=== PATIENT | male | born 2000 | race Caucasian/White ===

== ENCOUNTER 2019-12-22 07:26 | Inpatient (IN) | payer OTHER ==
[~2019-12-22] VITALS: Ht 170.2 cm; Wt 76.6 kg
[2019-12-22 08:30] LABS: HEMATOCRIT 47.3 % (42.0-52.0); HEMOGLOBIN 14.8 g/dl (13.5-17.5); MEAN CORPUSCULAR HGB CONC 31.3 g/dl (32.0-36.5); MEAN CORPUSCULAR VOLUME 89.4 fl (80.0-96.0); PLATELET COUNT, AUTOMATED 174 10^3/uL (150-450); RED BLOOD COUNT 5.29 10^6/uL (4.30-6.10); WHITE BLOOD COUNT 4.9 10^3/uL (4.0-10.0)
[2019-12-22 08:55] LABS: AMPHETAMINES LEVEL URINE NEGATIVE (NEGATIVE); BARBITURATES URINE NEGATIVE (NEGATIVE); BENZODIAZEPINES URINE NEGATIVE (NEGATIVE); CANNABINOIDS URINE NEGATIVE (NEGATIVE); COCAINE METABOLITE URINE NEGATIVE (NEGATIVE); METHADONE URINE NEGATIVE (NEGATIVE); OPIATES URINE NEGATIVE (NEGATIVE); PHENCYCLIDINE URINE NEGATIVE (NEGATIVE)
[2019-12-22 09:05] LABS: ACETAMINOPHEN LEVEL < 2.0 UG/ML (10.0-30.0); ALBUMIN 4.2 GM/DL (3.2-5.2); ALT/SGPT 33 U/L (12-78); BILIRUBIN,DIRECT < 0.1 MG/DL (0.0-0.2); BILIRUBIN,TOTAL 0.2 MG/DL (0.2-1.0); BLOOD UREA NITROGEN 12 MG/DL (7-18); CALCIUM LEVEL 8.4 MG/DL (8.5-10.1); CARBON DIOXIDE LEVEL 28 MEQ/L (21-32); CHLORIDE LEVEL 108 MEQ/L (98-107); CREATININE FOR GFR 1.05 MG/DL (0.70-1.30); ETHYL ALCOHOL (ETHANOL) < 0.003 % (0.000-0.010); GLOMERULAR FILTRATION RATE > 60.0 (>60); GLUCOSE, FASTING 89 MG/DL (70-100); POTASSIUM SERUM 4.3 MEQ/L (3.5-5.1); SALICYLATE LEVEL < 1.7 MG/DL (5.0-30.0); SODIUM LEVEL 141 MEQ/L (136-145); TOTAL PROTEIN 7.1 GM/DL (6.4-8.2)
[2019-12-22] MEDS ORDERED: MAALOX 30 ML SUSP *UDC PO PRN (19:30)
[2019-12-22] MEDS ORDERED: MOM 30ML SUSPENSION UDC PO PRN (19:30)
[2019-12-22] MEDS ORDERED: ACETAMINOPHEN TAB 650MG DOSE (2X325MG) PO PRN (19:30)
[2019-12-22 20:17] VITALS: BP 134/61
[2019-12-23 06:28] VITALS: BP 131/61
--- NOTE | 2019-12-23 10:53 | MHHPEPDOC ---
[facility] History & Physical History and Physical DATE OF ADMISSION: Dec 22, 2019 at 19:27 Subjective HPI: The patient was admitted to the inpatient mental health unit after reportedly stating that he was suicidal. He reports having multiple stressors including no longer enjoying working in the . He reports that it's made things quite difficult for him to continue and that he finds himself increasingly suicidal as he is displeased with this work. He reports that he has no mental health history and that this had evolved in the setting of multiple stressors with loss of interest, fatigue and insomnia. Otherwise, patient denies any symptoms of psychosis. Inaudible for bipolar disorder. Reports that he's interested in a [employer] board. ALLERGIES: Allergies reviewed. MEDICAL HISTORY: Past medical history denies any history of admissions and inpatient stays, medication trials or suicide attempts. No previous diagnosis. FAMILY HISTORY: Family history denies any mental health history. 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 Reports that originally came from [facility]. SOCIAL HISTORY - SMOKING: Substance abuse, inaudible tobacco, alcohol and marijuana use currently. SURGICAL HISTORY: Surgical history reviewed. Objective Appearance: Well groomed. Appears to be stated age. Well nourished. Mildly guarded. Dysthymic. Constricted. Behavior: Engaged. Cooperative with good eye contact. Pleasant. Affect: Appropriate to context. Full range. Mood: Generally good. Appropriately reactive. Euthymic. Speech: Normal rate. Spontaneous and Fluid. Normal volume. Motor: No gross motor abnormalities. Cognition: Grossly intact. Alert, Attentive, and Oriented to person, place, time. Memory: No gross abnormalities of short or penitentiary memory noted during interview. No formal testing. Thought Form: No signs of psychosis. Linear and goal directed. Thought Content: No evidence of suicidal ideation. No evidence of aggressive or homicidal ideation. No thoughts of self harm. Reports intermittent SI at times. No evidence of delusions. Perception: No perceptual abnormalities noted. Judgement: Poor to fair. Intact as evidenced by decision making in the recent past. Insight: Poor to fair. Good insight into symptoms and treatment options. Assessment F43.24 Adjustment disorder with disturbance of conduct Plan Start Sertraline 25 milligrams daily. Treatment priorities are 1) Risk for suicide 2) an effective coping. As far as length of stay is 3-5 days. Vital Signs Vital Signs Date Time Temp Pulse Resp B/P (MAP) Pulse Ox O2 Delivery O2 Flow Rate FiO2 12/23/19 06:28 97.9 75 16 131/61 (84) 12/22/19 20:17 98 Room Air Medications No Active Prescriptions or Reported Meds Allergies Coded Allergies: No Known Allergies (Unverified , 12/22/19) MILO BELLAMY DO Dec 23, 2019 10:53
[2019-12-23] MEDS ORDERED: SERTRALINE HCL 25 MG TABLET PO ONE (12:15)
--- NOTE | 2019-12-23 13:38 | HPEPDOC ---
[facility] Medical History & Physical Date of Admission Dec 23, 2019 Date of Service: Dec 23, 2019 History and Physical Chief complaint: Presented to the hospital. He had attempted suicide with a Benadryl overdose History of present illness: Patient is a 19-year-old male with no significant past medical history was presented to the hospital after attempting suicide with a Benadryl overdose. Patient was admitted to the inpatient unit under the care of psychiatry. Hospitalist service was consulted for medical screening evaluation. Patient denies any headache, nausea, vomiting, chest pain, shortness breath, palpitations, abdominal pain consultation, diarrhea, or urinary discomfort. He denies any recent fevers or chills. Has not experienced any changes in his weig ht or his appetite. 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 Review of Systems: 10 point review of systems complete, all negative otherwise stated in HPI Physical exam: - Vitals: BP [131/61], HR [75], RR [16], Sat [98%RA], Temp [97.9F] - General: Lying in bed, No acute distress, Speaking in full sentences, AAOx3 - HEENT: NC, AT, PERRLA - CVS: RRR, +S1S2 - Lungs: Fair air entry bilaterally, No wheezing / rales / rhonchi - Abdomen: Soft, Non-distended, Non-tender - Extremities: No lower extremity edema, No calf tenderness - Neuro: No focal motor or sensory deficit - Skin: No visible rashes Assessment and Plan: Suicidal attempt - Patient was admitted to inpatient mental health unit under the care of psychiatry - Currently being managed by psychiatry No significant past medical history DVT prophylaxis - Will continue with early ambulation 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
[2019-12-23 16:38] VITALS: BP 120/63
[2019-12-24 06:27] VITALS: BP 115/55
[2019-12-24] MEDS: SERTRALINE HCL 25 MG TABLET PO SCH (08:14)
--- NOTE | 2019-12-24 09:38 | MHIPNPDOC ---
[facility] Progress Note Progress Note DATE OF SERVICE: 12/24/19 Subjective HPI: Becca presents today for concerns regarding his psych issues. Patient was met with. He still reports feeling down and depressed. Still worries about suicide if he were to go back to the . MEDICATIONS: Reports that he didn't notice any changes on the medication, but no downsides to it either. Objective Affect: Dysthemic and constricted. Cognition: Grossly intact. Alert, Attentive, and Oriented to person, place, time. Thought Form: No signs of psychosis. Linear and goal directed. Thought Content: No evidence of delusions. No evidence of aggressive or homicidal ideation. Reports intermittent suicidal ideation at times. Judgement: Poor. Insight: Poor. Assessment F43.24 Adjustment disorder with disturbance of conduct Plan Continue Sertraline 25 mg daily. Will likely retain over the weekend. 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 Vital Signs Vital Signs Date Time Temp Pulse Resp B/P (MAP) Pulse Ox O2 Delivery O2 Flow Rate FiO2 12/24/19 06:27 99.1 61 16 115/55 (75) 12/22/19 20:17 98 Room Air Current Medications Current Medications Medications (Trade) Dose Ordered Sig/Maxime Route PRN Reason Start Time Stop Time Status Last Admin Dose Admin Acetaminophen (Tylenol Tab) 650 mg Q6HP PRN PO HEADACHE or DISCOMFORT 12/22/19 19:30 Al Hydrox/Mg Hydrox/Simethicone (Mylanta) 30 ml Q4HP PRN PO HEARTBURN/INDIGESTION 12/22/19 19:30 Home Med (Med Rec Complete!) ASDIRECTED XX 12/22/19 19:15 12/22/19 19:08 DC Magnesium Hydroxide (Milk Of Magnesia) 30 ml DAILYPRN PRN PO CONSTIPATION 12/22/19 19:30 Sertraline HCl (Zoloft) 25 mg DAILY PO 12/24/19 09:00 12/24/19 08:14 Trazodone HCl (Desyrel) 50 mg QHSP PRN PO INSOMNIA 12/22/19 19:30 Allergies Coded Allergies: No Known Allergies (Unverified , 12/22/19) MILO BELLAMY DO Dec 24, 2019 09:38
[2019-12-24] MEDS: traZODone 50 MG TAB PO PRN (21:30)
[2019-12-25 07:04] VITALS: BP 105/46
[2019-12-25] MEDS: SERTRALINE HCL 25 MG TABLET PO SCH (08:11)
[2019-12-25 09:37] VITALS: BP 105/46
--- NOTE | 2019-12-25 10:28 | MHIPNPDOC ---
[facility] Progress Note Progress Note DATE OF SERVICE: 12/25/19 Subjective HPI: Becca presents today for his psych issues. The page was met with briefly today. He reports that he is otherwise doing well and feels less anxious and depressed today. MEDICATIONS: He reports that he feels less preoccupied. Although he hasn't noticed any specific results from the Sertraline but denies any side effects of this time. Objective Appearance: Appears to be stated age. Well groomed. Well nourished. Behavior: Engaged. Cooperative with good eye contact. Pleasant. Affect: Full range. Appropriate to context. Mood: Generally good. Appropriately reactive. Euthymic. Speech: Spontaneous and Fluid. Normal volume. Normal rate. Motor: No gross motor abnormalities. Cognition: Alert, Attentive, and Oriented to person, place, time. Memory: No formal testing. No gross abnormalities of short or ocean transportation intermediary memory noted during interview. Thought Form: Linear and goal directed. Thought Content: No evidence of delusions. No evidence of aggressive or homicidal ideation. No thoughts of self harm. No evidence of suicidal ideation. Perception: No perceptual abnormalities noted. Judgement: Intact as evidenced by decision making in the recent past. Insight: Good insight into symptoms and treatment options. Assessment F43.24 Adjustment disorder with disturbance of conduct Plan Continue Zoloft 25 milligrams daily. Possible discharge on Saturday if he continues to do well over the weekend. Vital Signs Vital Signs Date Time Temp Pulse Resp B/P (MAP) Pulse Ox O2 Delivery O2 Flow Rate FiO2 12/25/19 09:37 99.1 67 16 105/46 98 Room Air Current Medications Current Medications Medications (Trade) Dose Ordered Sig/Maxime Route PRN Reason Start Time Stop Time Status Last Admin Dose Admin Acetaminophen (Tylenol Tab) 650 mg Q6HP PRN PO HEADACHE or DISCOMFORT 12/22/19 19:30 Al Hydrox/Mg Hydrox/Simethicone (Mylanta) 30 ml Q4HP PRN PO HEARTBURN/INDIGESTION 12/22/19 19:30 Home Med (Med Rec Complete!) ASDIRECTED XX 12/22/19 19:15 12/22/19 19:08 DC Magnesium Hydroxide (Milk Of Magnesia) 30 ml DAILYPRN PRN PO CONSTIPATION 12/22/19 19:30 Sertraline HCl (Zoloft) 25 mg DAILY PO 12/24/19 09:00 12/25/19 08:11 Trazodone HCl (Desyrel) 50 mg QHSP PRN PO INSOMNIA 12/22/19 19:30 12/24/19 21:30 Allergies Coded Allergies: No Known Allergies (Unverified , 12/22/19) MILO BELLAMY DO Dec 25, 2019 10:28
[2019-12-25 16:05] VITALS: BP 123/65
[2019-12-25] MEDS: traZODone 50 MG TAB PO PRN (22:22)
[2019-12-26 06:25] VITALS: BP 105/63
[2019-12-26] MEDS: SERTRALINE HCL 25 MG TABLET PO SCH (08:16)
--- NOTE | 2019-12-26 14:10 | MHIPNPDOC ---
[facility] Progress Note Progress Note DATE OF SERVICE: 12/26/19 HISTORY: As per ED report: "Patient arrived with escort from his [facility]. He reported to his leadership this morning that he was not feeling well & that he'd taken an intentional overdose of Benadryl on Saturday" VITAL SIGNS: See below. NEW TEST RESULTS: See below CURRENT MEDICATIONS: See below. MENTAL STATUS EXAMINATION: Patient is a 19 year old male, who is alert, cooperative, dressed in hospital clothes. Speech: Is rapid, pressured. Language skills are intact. Thought processes including: linear, coherent. Thought content: denies si/hi. Denies TAV hallucinations, denies thought delusions. Abstract reasoning, and computation: fair. Description of associations: fair. Description of abnormal or psychotic thoughts: he denies si/hi, denies tav hallucinations, denies thought delusions. Judgment: improving. Insight: improving. Orientation: x 3 Recent and remote memory: good. Attention span and concentration: good. Language: adequate. Fund of knowledge: average Mood: a little bit anxious. Affect: congruent with mood. DIAGNOSES: F43.24 Adjustment disorder with disturbance of conduct ASSESSMENT: He says he is having a hard time in the [employer], h would like to go back to [facility] where his family lives. he says he has been depressed for a long time, he says his family never talked bout feelings, he doesn't know if they have a h/o mental illness. MANAGEMENT PLAN: Increased his Zoloft to 50 mgs, he seems to be very anxious. TIME SPENT: 15 minutes. Vital Signs Vital Signs Date Time Temp Pulse Resp B/P (MAP) Pulse Ox O2 Delivery O2 Flow Rate FiO2 12/26/19 06:25 98.6 69 16 105/63 (77) 12/25/19 09:37 98 Room Air Current Medications Current Medications Medications (Trade) Dose Ordered Sig/Maxime Route PRN Reason Start Time Stop Time Status Last Admin Dose Admin Acetaminophen (Tylenol Tab) 650 mg Q6HP PRN PO HEADACHE or DISCOMFORT 12/22/19 19:30 Al Hydrox/Mg Hydrox/Simethicone (Mylanta) 30 ml Q4HP PRN PO HEARTBURN/INDIGESTION 12/22/19 19:30 Home Med (Med Rec Complete!) ASDIRECTED XX 12/22/19 19:15 12/22/19 19:08 DC Magnesium Hydroxide (Milk Of Magnesia) 30 ml DAILYPRN PRN PO CONSTIPATION 12/22/19 19:30 Sertraline HCl (Zoloft) 25 mg DAILY PO 12/24/19 09:00 12/26/19 08:16 Trazodone HCl (Desyrel) 50 mg QHSP PRN PO INSOMNIA 12/22/19 19:30 12/25/19 22:22 Allergies Coded Allergies: No Known Allergies (Unverified , 12/22/19) DEB HAWK MD Dec 26, 2019 14:04
[2019-12-26 16:26] VITALS: BP 110/56
[2019-12-27 06:28] VITALS: BP 110/53
[2019-12-27] MEDS: SERTRALINE HCL 50 MG TAB PO SCH (08:29)
[2019-12-27 17:07] VITALS: BP 134/67
[2019-12-27] MEDS: traZODone 50 MG TAB PO PRN (22:27)
[2019-12-28 06:46] VITALS: BP 128/59
[2019-12-28] MEDS: SERTRALINE HCL 50 MG TAB PO SCH (08:22)
--- NOTE | 2019-12-28 09:53 | MHDSPDOC ---
[facility] Discharge Summary Discharge Summary DATE OF ADMISSION: Dec 22, 2019 at 19:27 DATE OF DISCHARGE: Dec 28, 2019 at 12:40 DISCHARGE DIAGNOSES: F43.25 Adjustment disorder with mixed disturbance of emotions and conduct CONSULTANTS INVOLVED:[ None (basic hospitalist screening)] REASON FOR ADMISSION & TREATMENT AND PROGRESS ON THE UNIT : Becca presented to the inpatient mental health unit. He reported that he hadnt noticed the effect of the medication, but he was notably more social and engaged and his suicidal thoughts vanished quickly over the weekend. He did quite well. MEDICATIONS: He did fair on the unit. He was resumed on Sertraline, increased to 50 milligrams. He did quite well. His depression resovled. DISCHARGE ASSESSMENT[improved] Legal status considerations: The patient at the time of discharge did not meet criteria for involuntary admission/extension due to having a [normal] mental status exam, [fair] insight into the situation, They are engaged in the discharge process, as well as being friendly and amenable in behavioral control and havent been engaging in any obs erved concerning behavior or ideation recently. They decline voluntary extension/admission at this time and must be discharged in good breann, as Im unable to make a case for holding the patient against their will. They may have historical risk factors of admissions and other interactions with psychiatry however, those are not modifiable from a clinical perspective. The patient will need to be discharged in good breann. MENTAL STATUS EXAMINATION ON DISCHARGE: [General: Well dressed with good hygiene Speech: Spontaneous and fluid Thought processes: Linear and logical Thought content: Future orientated Abstract reasoning, and computation: Intact Description of associations: Intact Description of abnormal or psychotic thoughts:Denies any suicidal or homicidal ideation. Denies any auditory or visual hallucinations. Does not appear to be responding to internal stimuli. Does not appear to be endorsing any bizarre or paranoid ideation. Judgment: fair Insight: fair Orientation: Alert and orientated 3 Recent and remote memory: Intact Attention span and concentration: Intact Fund of knowledge: Adequate Mood: "okay" Affect: Euthymic with a full range] PLAN/FOLLOWUP ARRANGEMENTS: Follow up appointments made (PCP and MH in 5 days of D/C date) and safety plan completed. Safety Planning aspects completed prior to discharge [DOD: Weapons Profile 30 days] [Medication supplies limited to 7 days with 4 refills to prevent accumulation to OD] [RN reviewed crisis hotline information and other aspects to empower patient to access care in interim before next appointment.] The amount of time spent in the coordination of care for this patient was peewee roximately 30 minutes. Vital Signs/I&Os Vital Signs Date Time Temp Pulse Resp B/P (MAP) Pulse Ox O2 Delivery O2 Flow Rate FiO2 12/28/19 06:46 98.3 80 14 128/59 (82) 99 12/25/19 09:37 Room Air Medications Scheduled Sertraline HCl (Sertraline HCl) 50 Mg Tablet, 50 MG PO DAILY for mood for 7 Days, #7 Allergies Coded Allergies: No Known Allergies (Unverified , 12/22/19) MILO BELLAMY DO Dec 28, 2019 09:53
[2019-12-28] MEDS ORDERED: SERT50TA29 PO (10:22)
[2019-12-28] MEDS ORDERED: DISU250T PO (10:22)
== END 2019-12-28 12:40 | disposition home or self-care (01) | DRG 882 ==
LOC: M ED 07:26 → M ED INP 19:27 → M PSY 20:00
PROVIDERS: ADMIT Psychiatry & Neurology Addiction Medicine; ATTEND Psychiatry & Neurology Addiction Medicine
DX: F43.24 Adjustment disorder with disturbance of conduct (principal); Z56.89 Other problems related to employment; T45.0X2A Poisoning by antiallergic and antiemetic drugs, intentional self-harm, initial encounter